=== PATIENT | male | born 1980 | race Two or more races ===

== ENCOUNTER 2020-11-05 16:21 | Emergency (ER) | payer OTHER ==
[~2020-11-05] VITALS: Ht 157.5 cm; Wt 65.8 kg
[2020-11-05 16:21] VITALS: BP 124/73
--- NOTE | 2020-11-05 17:10 | NUR ---
PT DID REFUSED BLOOD DRAW. MEDICALLY CLEARED. DISCHARGE IN STABLE CONDITION.
== END 2020-11-05 17:11 | disposition home or self-care (01) ==
LOC: ER 16:28
DX: S80.02XA Contusion of left knee, initial encounter (principal); F10.10 Alcohol abuse, uncomplicated; W19.XXXA Unspecified fall, initial encounter; Y93.89 Activity, other specified; Y92.89 Other specified places as the place of occurrence of the external cause; Y99.8 Other external cause status; Y90.9 Presence of alcohol in blood, level not specified
CPT/HCPCS: 73564-TC